=== PATIENT | female | born 1970 | race Caucasian/White ===

== ENCOUNTER → 2017-02-22 14:52 | Outpatient (CLI) | payer BC | END | disposition home or self-care (01) | LOC: D.CT 14:52 | DX: R93.8 Abnormal findings on diagnostic imaging of other specified body structures (principal); R91.1 Solitary pulmonary nodule ==

== ENCOUNTER → 2018-01-17 08:53 | Outpatient (CLI) | payer MEDICAID | END | disposition home or self-care (01) | LOC: D.NM 08:53 | DX: R10.11 Right upper quadrant pain (principal); K80.20 Calculus of gallbladder without cholecystitis without obstruction ==

== ENCOUNTER 2018-01-30 06:45 | Day surgery (SDC) | payer MEDICAID ==
[2018-01-29 15:26] LABS: BASOPHILS 0.2 % (0-2); EOSINOPHILS 0.8 % (0-7); HEMATOCRIT 38.2 % (36.0-48.0); HEMOGLOBIN 12.7 g/dL (12-16); IMMATURE GRANULOCYTES 0.2 % (0-5); LYMPHOCYTES 32.5 % (15-50); MCH 30.5 pg (26.0-34.0); MCHC 33.2 g/dL (31.0-37.0); MCV 91.6 fL (80.0-100.0); MEAN PLATELET VOLUME 9.9 fL (7.4-10.4); NEUTROPHILS 60.3 % (40-80); PLATELET COUNT 258 10x3/uL (130-400); RBC 4.17 10x6/uL (4.00-5.40); RDW 13.7 % (11.5-14.5); WBC 8.5 10x3/uL (4.8-10.8)
[2018-01-29 15:45] LABS: ANION GAP 15.4 mmol/L (8-16); CALCIUM 8.4 mg/dL (8.5-10.1); CARBON DIOXIDE 24.9 mmol/L (21.0-32.0); CREATININE - SERUM 0.9 mg/dL (0.6-1.3); POTASSIUM - SERUM 3.3 mmol/L (3.5-5.1)
[~2018-01-30] VITALS: Ht 165.1 cm; Wt 110.0 kg
[~2018-01-30 06:45] MED LIST: ALBUTEROL SULF8.5 GM INH; AMBIEN10 MG PO; AUGMENTIN 875-11 TAB PO; DESERYL50 M2 PO; EFFEXOR XR150 MG PO; KLONOPIN1 MG PO; LEVOTHYROXINE75 MCG PO; OMEPRAZOLE40 MG PO; TESSALON PERLE100 MG PO; VITAMIN D250000 UNIT PO
[2018-01-30 07:12] VITALS: BP 102/80; Ht 165.1 cm; Wt 110.0 kg
[2018-01-30] MEDS ORDERED: NORCO 10-325 TA1 TAB PO (09:52)
--- NOTE | 2018-01-30 12:00 | NUR ---
1145 PT TOLERATING FULL LIQUID DIET. DOES NOT HAVE THE URGE TO VOID. INCREASED IV FLUIDS TO HELP FACILITATE URINE PRODUCTION AND TO INCREASE B/P TO BASELINE VS.
--- NOTE | 2018-01-30 12:52 | NUR ---
DC INSTRUCTIONS GIVEN TO PT/FAMILY. STATE UNDERSTANDING. DC'D IV CATH FULLY INTACT. PT LEFT UNIT VIA WC AT 1252
--- NOTE | 2018-01-31 16:36 | OP ---
PATIENT NAME: JUSTIN HERNANDEZ MEDICAL RECORD: [id number] :72 LOCATION:D.OPS ADMISSION DATE: SURGEON: RAAD GAGNON MD DATE OF OPERATION: 01/30/2018 PREOPERATIVE DIAGNOSES: 1. Gallstones. 2. Anxiety. 3. Thyroid disorder. POSTOPERATIVE DIAGNOSES: 1. Gallstones. 2. Anxiety. 3. Thyroid disorder. PROCEDURE: Laparoscopic cholecystectomy. SURGEON: Raad Gagnon MD REPORT OF PROCEDURE: The patient's abdomen was prepped and draped in sterile fashion. A cutdown was made on the superior aspect of the umbilicus, 0 Vicryls were placed in the fascia bilaterally and the fascia was incised with 15-blade. I then bluntly entered the peritoneal cavity and placed a 12-mm Caitlyn port. Under direct visualization, a 5-mm trocar was placed in the epigastrium and 2 more 5-mm trocars were placed in the right subcostal region. The gallbladder was grasped and elevated. There were some inflammatory adhesions present and these were teased down carefully with blunt dissection. The cystic artery and cystic duct were dissected free and these were clipped proximally and distally and ligated in standard fashion. The gallbladder was taken off the liver bed using electrocautery and placed in the right upper quadrant. Any bleeding from the liver bed was then treated with electrocautery. At this point, the ports and insufflation were then removed and the gallbladder was taken out through the umbilicus. The umbilical fascia was closed with interrupted 0 Vicryls times 3. Wounds were then irrigated out with normal saline and infused with 10 mL of 0.25% Marcaine with epinephrine. The skin incisions were all closed with subcutaneous 5-0 Monocryl and dressed appropriately. COMPLICATIONS: None. CONDITION: Stable. ANESTHESIA: General endotracheal and local. BLOOD LOSS: Minimal. TRANSINT:[id number] Voice Confirmation ID: [id number] DOCUMENT ID: [id number] OPERATIVE REPORT [id number] JUSTIN HERNANDEZ RAAD GAGNON MD at 1636 CC: FITO PERALTA and JACI LIM DO [id number] DICTATION DATE: 01/30/18 0951 [employer]OM[employer]LE APPRAISER: 01/30/18 1122 [facility] [place] 01/30/18 [facility] [address] [place] [address]
== END 2018-01-30 12:52 | disposition home or self-care (01) ==
LOC: D.OPS 06:45 → D.PAN 09:15 → D.OPS 09:15
PROVIDERS: Surgery
DX: K80.10 Calculus of gallbladder with chronic cholecystitis without obstruction (principal); F41.9 Anxiety disorder, unspecified; E07.9 Disorder of thyroid, unspecified; Z01.812 Encounter for preprocedural laboratory examination

== ENCOUNTER 2018-08-07 19:31 | Emergency (ER) | payer MEDICAID ==
[~2018-08-07] VITALS: Ht 165.1 cm; Wt 95.5 kg
[~2018-08-07 19:31] MED LIST changes: +NORCO 10-325 TA1 TAB PO
[2018-08-07 19:36] VITALS: Ht 165.1 cm; Wt 95.5 kg
[2018-08-07 20:03] LABS: APPEARANCE CLEAR (CLEAR); BILIRUBIN NEGATIVE (NEGATIVE); COLOR YELLOW (YELLOW); GLUCOSE NEGATIVE (NEGATIVE); KETONE NEGATIVE (NEGATIVE); NITRITE NEGATIVE (NEGATIVE); PROTEIN NEGATIVE (NEGATIVE); SPECIFIC GRAVITY 1.025 (1.005-1.020); UROBILINOGEN NORMAL (NORMAL)
[2018-08-07 20:19] LABS: BASOPHILS 0.3 % (0-2); EOSINOPHILS 0.6 % (0-7); HEMATOCRIT 36.9 % (36.0-48.0); HEMOGLOBIN 12.4 g/dL (12-16); IMMATURE GRANULOCYTES 0.2 % (0-5); MCH 29.2 pg (26.0-34.0); MCHC 33.6 g/dL (31.0-37.0); MEAN PLATELET VOLUME 9.9 fL (7.4-10.4); MONOCYTES 5.8 % (2-11); NEUTROPHILS 61.1 % (40-80); PLATELET COUNT 261 10x3/uL (130-400); RBC 4.24 10x6/uL (4.00-5.40); RDW 14.3 % (11.5-14.5); WBC 11.1 10x3/uL (4.8-10.8)
[2018-08-07 20:33] LABS: ALBUMIN 3.6 g/dL (3.4-5.0); ANION GAP 14.8 mmol/L (8-16); BILIRUBIN - TOTAL 0.34 mg/dL (0.2-1.3); CALCIUM 8.8 mg/dL (8.5-10.1); CARBON DIOXIDE 23.5 mmol/L (21.0-32.0); CREATININE - SERUM 0.9 mg/dL (0.6-1.3); POTASSIUM - SERUM 3.3 mmol/L (3.5-5.1)
[2018-08-07] MEDS ORDERED: HYDROCODON-ACE1 EA10 PO (21:45)
[2018-08-07 22:16] VITALS: BP 122/69
== END 2018-08-07 22:16 | disposition home or self-care (01) ==
LOC: D.ER 19:31
PROVIDERS: Family Medicine
DX: K42.9 Umbilical hernia without obstruction or gangrene (principal)

== ENCOUNTER → 2018-08-27 14:05 | Outpatient (CLI) | payer MEDICAID ==
[2018-08-07 19:36] VITALS: BMI 35.0
[~2018-08-27 14:05] MED LIST changes: +HYDROCODON-ACE1 EA10 PO
[2018-08-27 14:35] LABS: BASOPHILS 0.3 % (0-2); EOSINOPHILS 0.5 % (0-7); HEMATOCRIT 36.1 % (36.0-48.0); HEMOGLOBIN 12.1 g/dL (12-16); IMMATURE GRANULOCYTES 0.3 % (0-5); LYMPHOCYTES 32.5 % (15-50); MCH 28.9 pg (26.0-34.0); MCHC 33.5 g/dL (31.0-37.0); MCV 86.4 fL (80.0-100.0); MEAN PLATELET VOLUME 9.8 fL (7.4-10.4); MONOCYTES 7.9 % (2-11); NEUTROPHILS 58.5 % (40-80); PLATELET COUNT 281 10x3/uL (130-400); RBC 4.18 10x6/uL (4.00-5.40); RDW 14.3 % (11.5-14.5); WBC 7.6 10x3/uL (4.8-10.8)
[2018-08-27 14:46] LABS: AMYLASE - SERUM 38 U/L (25-115); LIPASE 100 U/L (73-393)
[2018-08-27 16:33] LABS: ERYTHROCYTE SEDIMENTATION RATE 10 mm/hr (0-20)
== END | disposition home or self-care (01) ==
LOC: D.LAB 14:05 → D.NM 14:30
PROVIDERS: ATTEND Internal Medicine Gastroenterology
DX: K44.9 Diaphragmatic hernia without obstruction or gangrene (principal); R10.10 Upper abdominal pain, unspecified; K42.9 Umbilical hernia without obstruction or gangrene

== ENCOUNTER 2019-04-02 05:15 | Day surgery (SDC) | payer BC ==
[2019-04-01 09:35] LABS: BASOPHILS 0.2 % (0-2); EOSINOPHILS 0.9 % (0-7); HEMATOCRIT 36.9 % (36.0-48.0); HEMOGLOBIN 11.5 g/dL (12-16); IMMATURE GRANULOCYTES 0.3 % (0-5); LYMPHOCYTES 24.3 % (15-50); MCHC 31.2 g/dL (31.0-37.0); MCV 86.6 fL (80.0-100.0); MEAN PLATELET VOLUME 9.4 fL (7.4-10.4); MONOCYTES 8.1 % (2-11); NEUTROPHILS 66.2 % (40-80); RBC 4.26 10x6/uL (4.00-5.40); RDW 15.2 % (11.5-14.5); WBC 8.9 10x3/uL (4.8-10.8)
[2019-04-01 09:38] LABS: CALC OSMOLALITY 276 mosm/kg (275-300); CALCIUM 8.5 mg/dL (8.5-10.1); CARBON DIOXIDE 26.8 mmol/L (21.0-32.0); CHLORIDE - SERUM 105 mmol/L (98-107); CREATININE - SERUM 0.8 mg/dL (0.6-1.3); GLUCOSE 94 mg/dL (74-106); PLATELET COUNT 349 10x3/uL (130-400); SODIUM 139 mmol/L (136-145); UREA NITROGEN 10 mg/dL (7-18); eGFR NON AFRICAN AMERICAN 81 mL/min (90-120)
[~2019-04-02] VITALS: Ht 165.1 cm; Wt 122.9 kg
--- NOTE | ~2019-04-02 | OP ---
PATIENT NAME: JUSTIN HERNANDEZ MEDICAL RECORD: [id number] :72 [facility]ATION:[facility] ADMISSION DATE: SURGEON: RAAD GAGNON MD DATE OF OPERATION: 04/02/2019 PREOPERATIVE DIAGNOSES: 1. Ventral incisional hernias times 2. 2. Morbid obesity with a BMI of 45. 3. Hypothyroidism. POSTOPERATIVE DIAGNOSES: 1. Ventral incisional hernias times 2. 2. Morbid obesity with a BMI of 45. 3. Hypothyroidism. PROCEDURE: Ventral hernia repair with [address] mesh. SURGEON: Raad Gagnon MD REPORT OF PROCEDURE: The patient's abdomen was prepped and draped in sterile fashion. A skin incision was made in the midline just above the umbilicus. Electrocautery was used to dissect through the subcutaneous tissues and we immediately encountered a large hernia sac. This hernia sac was dissected from the surrounding fatty tissue and all the way down to the fascia. We then excised this hernia sac down at the fascial edges. We cleared off the posterior aspect of the fascia and as we did this we could feel around on the anterior abdominal wall. The patient actually had two other hernia defects. One of them was a very small defect just to the left, one above the umbilicus and there was another hernia defect at the base of the umbilicus. The wound at the base of the umbilicus was about 1.5 cm in greatest diameter and the largest defect just above the umbilicus was about 2.5 cm in size. We cleared up all the fascial edges using electrocautery and took down the fatty tissue off the anterior aspect of the fascia. We elevated the umbilicus in order to better see the tissues. I then opened up the fascial bridges which were connecting all of these hernia defects and inserted an [address] mesh in an underlay fashion. This was sutured down on all 4 sides using multiple interrupted 0 Prolenes. We then irrigated out the wound with normal saline and care was taken to assure there was no sign of any active bleeding. The fascia was then closed longitudinally in the midline using running loop #1 PDS times 2. There was good approximation of the tissues and again no sign of any active bleeding. The subcutaneous tissues were reapproximated with multiple interrupted 3-0 Vicryls and the umbilicus was tacked down to the fascia using a single interrupted 3-0 Vicryl. The skin incision was infused with 10 mL of 0.25% Marcaine with epinephrine and then closed with running subcutaneous 5-0 Monocryl. COMPLICATIONS: None. CONDITION: Stable. ANESTHESIA: General endotracheal and local. BLOOD LOSS: 50 mL. TRANSINT:[id number] Voice Confirmation ID: [id number] DOCUMENT ID: [id number] OPERATIVE REPORT [id number] JUSTIN HERNANDEZ CHRISTIAN MD CC: SUDHIR DEAN [id number] DICTATION DATE: 04/02/19913 SOFTWARE BUILD ENGINEER: 04/02/19 1048 [facility] [address] [place] [address]
[2019-04-02 06:13] VITALS: BP 116/72; Ht 165.1 cm; Wt 122.9 kg
--- NOTE | 2019-04-02 06:58 | NUR ---
[address] GAGNON NOTIFIED THAT H&P NEED TO BE UPDATED.
[2019-04-02] MEDS ORDERED: HYDROCODON-ACE1 EA10 PO (09:06)
--- NOTE | 2019-04-02 11:17 | NUR ---
1045 PT C/O INCISIONAL PAIN AND ASKING FOR PAIN MEDICATION 1051 NORCO GIVEN ORDERED. PAIN IS CURRENTLY 6 OUT OF 10 1113 PT UP TO BATHROOM WITH MUCH ASSISTANCE TO ATTEMPT TO VOID. PT GUARDED IN HER WALKING
--- NOTE | 2019-04-02 11:37 | NUR ---
1116 PT VOIDED WITHOUT DIFFICULTY. 1121 IV DC'D. CATHETER TIP INTACT. NO BLEEDING AT SITE AFTER HOLDING PRESSURE. BANDAID APPLIED. 1130 PT DRESSED AND READY FOR DISCHARGE. BOTH SHE AND HER VOICE UNDERSTANDING OF DISCHARGE INSTRUCTIONS.
== END 2019-04-02 11:37 | disposition home or self-care (01) ==
LOC: D.OPS 05:15 → D.PAN 07:30 → D.OPS 07:30
PROVIDERS: ATTEND Surgery
DX: K43.2 Incisional hernia without obstruction or gangrene (principal); E66.01 Morbid (severe) obesity due to excess calories; Z68.42 Body mass index [BMI] 45.0-49.9, adult; E03.9 Hypothyroidism, unspecified

== ENCOUNTER 2019-10-14 09:45 | Emergency (ER) | payer BC ==
[~2019-10-14] VITALS: Ht 167.6 cm; Wt 90.7 kg
[2019-10-14 09:59] VITALS: Ht 167.6 cm; Wt 90.7 kg
[2019-10-14 10:51] LABS: BASOPHILS 0.2 % (0-2); EOSINOPHILS 0.8 % (0-7); HEMATOCRIT 36.2 % (36.0-48.0); HEMOGLOBIN 11.4 g/dL (12-16); IMMATURE GRANULOCYTES 0.3 % (0-5); LYMPHOCYTES 31.1 % (15-50); MCH 26.3 pg (26.0-34.0); MCHC 31.5 g/dL (31.0-37.0); MCV 83.4 fL (80.0-100.0); MEAN PLATELET VOLUME 9.6 fL (7.4-10.4); MONOCYTES 8.9 % (2-11); NEUTROPHILS 58.7 % (40-80); PLATELET COUNT 348 10x3/uL (130-400); RBC 4.34 10x6/uL (4.00-5.40); RDW 17.6 % (11.5-14.5); WBC 12.7 10x3/uL (4.8-10.8)
[2019-10-14 10:58] LABS: CALC OSMOLALITY 281 mosm/kg (275-300); CALCIUM 8.4 mg/dL (8.5-10.1); CARBON DIOXIDE 26.5 mmol/L (21.0-32.0); CHLORIDE - SERUM 106 mmol/L (98-107); CREATININE - SERUM 0.8 mg/dL (0.6-1.3); GLUCOSE 108 mg/dL (74-106); POTASSIUM - SERUM 3.6 mmol/L (3.5-5.1); SODIUM 140 mmol/L (136-145); UREA NITROGEN 17 mg/dL (7-18); eGFR NON AFRICAN AMERICAN 81 mL/min (90-120)
[2019-10-14 11:03] LABS: APTT 25.4 SECONDS (22.8-39.4); INR 0.99 (0.85-1.17)
[2019-10-14 11:04] LABS: D-DIMER-QUANTITATIVE 1.04 ug/mLFEU (0.20-0.54)
[2019-10-14 11:13] LABS: ALBUMIN 3.2 g/dL (3.4-5.0); ALKALINE PHOSPHATASE 70 U/L (30-120); ALT (SGPT) 20 U/L (10-68); BILIRUBIN - TOTAL 0.27 mg/dL (0.2-1.3); CKMB 0.8 U/L (0.0-3.6); CREATINE KINASE 59 UL (21-215); PRO BNP 69 pg/mL (0-125); PROTEIN - SERUM 6.3 g/dL (6.4-8.2); TROPONIN-I < 0.017 ng/mL (0.000-0.060)
[2019-10-14 13:17] VITALS: BP 133/67
== END 2019-10-14 13:18 | disposition home or self-care (01) ==
LOC: D.ER 09:45
DX: J40 Bronchitis, not specified as acute or chronic (principal); R01.1 Cardiac murmur, unspecified; K21.9 Gastro-esophageal reflux disease without esophagitis

== ENCOUNTER 2020-06-06 11:45 | Outpatient (CLI) | payer BC ==
[2019-10-14 09:59] VITALS: BMI 45.1
== END 2020-06-06 23:59 | disposition home or self-care (01) ==
LOC: D.MAMMO 11:45
PROVIDERS: ATTEND Family Medicine
DX: Z12.31 Encounter for screening mammogram for malignant neoplasm of breast (principal)

== ENCOUNTER 2020-06-15 15:30 | Outpatient (CLI) | payer BC ==
[2019-10-14 09:59] VITALS: BMI 45.1
== END 2020-06-15 23:59 | disposition home or self-care (01) ==
LOC: D.MAMMO 15:30
PROVIDERS: ATTEND Clinical Nurse Specialist Family Health
DX: R92.8 Other abnormal and inconclusive findings on diagnostic imaging of breast (principal)

== ENCOUNTER → 2020-06-23 19:40 | Outpatient (CLI) | payer BC ==
[2019-10-14 09:59] VITALS: BMI 45.1
== END | disposition home or self-care (01) ==
LOC: D.MAMMO 08:00
PROVIDERS: ATTEND Clinical Nurse Specialist Family Health
DX: R92.8 Other abnormal and inconclusive findings on diagnostic imaging of breast (principal)